=== PATIENT | female | born 1950 | race Caucasian/White ===

== ENCOUNTER 2017-07-16 12:31 | Emergency (ER) | payer OTHER ==
[~2017-07-16] VITALS: Ht 156.2 cm; Wt 62.6 kg
[~2017-07-16 12:31] MED LIST: BUPROPION XL150 MG PO; CALCIUM +D & M1 EACH PO; CO Q-10200 MG PO; DAILY MULTIPLE1 EACH PO; ESTRACE42.5 GM VG; GLUCOSAMINE &1 EAC1 PO; MAGNESIUM400 M1 PO; MELOXICAM15 M1 PO; METAXALONE800 M1; OMEGA 3-6-9 11200 MG PO; VISTARIL50 M1 PO; VITAMIN B122500 MC1 PO; VITAMIN D1000 UNIT PO
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
[2017-07-16 17:37] VITALS: BP 142/92
== END 2017-07-16 17:57 ==
LOC: ERH 12:31
DX: S09.90XA Unspecified injury of head, initial encounter (principal); S06.0X9A Concussion with loss of consciousness of unspecified duration, initial encounter; S39.012A Strain of muscle, fascia and tendon of lower back, initial encounter; R03.0 Elevated blood-pressure reading, without diagnosis of hypertension; V43.51XA Car driver injured in collision with sport utility vehicle in traffic accident, initial encounter; Y92.9 Unspecified place or not applicable